=== PATIENT | male | born 1965 | race Hispanic/Latino ===

== ENCOUNTER → 2019-11-17 | Outpatient (CLI) | payer MEDICARE, MEDICAID ==
[2019-11-17 13:13] LABS: MEAN CORP HGB 27.9 pg (26-34); RED CELL DISTRIBUTION WIDTH 14.3 % (11.5-14.5)
[2019-11-17 13:39] LABS: CALCIUM 8.5 mg/dL (8.4-10.5); CARBON DIOXIDE 23.4 mmol/L (20.0-32)
== END | disposition home or self-care (01) ==
LOC: LAB 12:42
PROVIDERS: ATTEND Internal Medicine
DX: E11.9 Type 2 diabetes mellitus without complications (principal); I10 Essential (primary) hypertension
CPT/HCPCS: 36415; 80053; 83036; 85027; 87070; 87077

== ENCOUNTER → 2020-04-02 | Outpatient (CLI) | payer MEDICARE, MEDICAID | END | disposition home or self-care (01) | LOC: LAB 18:55 | PROVIDERS: ATTEND Internal Medicine | DX: R89.5 Abnormal microbiological findings in specimens from other organs, systems and tissues (principal) | CPT/HCPCS: 87070 ==

== ENCOUNTER → 2021-02-25 | Outpatient (CLI) | payer MEDICARE, MEDICAID | END | disposition home or self-care (01) | LOC: NPLAB 21:05 | PROVIDERS: ATTEND Internal Medicine | DX: L89.95 Pressure ulcer of unspecified site, unstageable (principal) | CPT/HCPCS: 87070 ==

== ENCOUNTER → 2021-10-16 | Outpatient (CLI) | payer MEDICARE, MEDICAID | END | disposition home or self-care (01) | LOC: NPLAB 17:55 | PROVIDERS: ATTEND Internal Medicine | DX: L03.116 Cellulitis of left lower limb (principal) | CPT/HCPCS: 87070; 87077; 87186 ==

== ENCOUNTER → 2021-12-04 | Outpatient (CLI) | payer MEDICARE, MEDICAID | END | disposition home or self-care (01) | LOC: NPLAB 19:24 | PROVIDERS: ATTEND Internal Medicine | DX: L89.95 Pressure ulcer of unspecified site, unstageable (principal) | CPT/HCPCS: 87070 ==